=== PATIENT | female | born 1990 | race Asian ===

== ENCOUNTER 2016-11-29 12:25 | Emergency (ER) | payer BC ==
[~2016-11-29] VITALS: Ht 167.6 cm; Wt 56.6 kg
[2016-11-29 12:33] VITALS: TEMP 38.1; Ht 167.6 cm; Wt 56.6 kg
[2016-11-29 13:38] LABS: BASO % 0.2 %; BASO ABS # 0.01 K/uL (0-0.2); COMPLETE YES; EOS % 0.9 %; LYMPH % 28.2 %; LYMPH ABS # 1.19 K/uL (1.2-3.4); MEAN CELL VOLUME 91.1 fL (80-100); MEAN CORPUSCULAR HEMOGLOBIN 31.4 pg (25-34); MEAN CORPUSCULAR HGB CONC 34.5 g/dl (32-36); MEAN PLATELET VOLUME 9.1 fL (7.4-10.4); MONO % 9.7 %; PLATELET COUNT 184 K/uL (130-400); RED BLOOD COUNT 4.39 M/uL (4.2-5.4); WHITE BLOOD COUNT 4.22 K/uL (4.8-10.8)
[2016-11-29] MEDS ORDERED: SODIUM CHLORIDE 0.9% 1000ML 1,000 ML IV STA ×2 (13:40)
[2016-11-29] MEDS ORDERED: ACETAMINOPHEN 500 MG TAB PO STA (13:40)
[2016-11-29 13:43] VITALS: O2SAT 98
[2016-11-29 13:48] LABS: BUN/CREATININE RATIO 13.3 (10-20); CALCIUM 8.9 mg/dl (8.5-10.1); CREATININE 0.68 mg/dl (0.60-1.20); POTASSIUM 3.7 mmol/L (3.5-5.1)
--- NOTE | 2016-11-29 14:26 | DIAGNOSTIC IMAGING REPORT ---
SINGLE VIEW CHEST CLINICAL HISTORY: Cough and fever. FINDINGS: An AP, portable, upright chest radiograph is obtained. No prior studies are available for comparison at the time of dictation. The examination is degraded by portable technique and patient rotation. The cardiomediastinal silhouette is unremarkable. The lungs and pleural spaces are clear. No pneumothorax is seen. The bony thorax is grossly intact. IMPRESSION: No active disease in the chest. Electronically signed by: Lionel Nguyen M.D. 11/29/2016 2:24 PM Dictated Date/Time: 11/29/2016 2:24 PM
[2016-11-29] MEDS ORDERED: OSELTAMIVIR PHOSPHATE 75 MG CAP PO STA (14:41)
[2016-11-29 14:58] LABS: URINE APPEARANCE CLEAR (CLEAR); URINE BILIRUBIN NEG (NEG); URINE COLOR YELLOW; URINE NITRITE NEG (NEG); URINE PH >= 9.0 (4.5-7.5); URINE SPECIFIC GRAVITY 1.012 (1.000-1.030); UROBILINOGEN NEG (NEG)
[2016-11-29 15:05] LABS: MANUAL MICROSCOPIC REQUIRED? NO; REVIEW REQ? NO
[2016-11-29 15:21] VITALS: BP 96/54; PULSE 71; O2SAT 98
[2016-11-29] MEDS ORDERED: OSEL75CA12 PO (15:21)
[2016-11-29] MEDS ORDERED: IBUP-103 PO (15:25)
[2016-11-29] MEDS ORDERED: TYLOTC500 PO (15:25)
--- NOTE | 2016-11-29 17:31 | EMERGENCY ROOM VISIT NOTE ---
History Report prepared by Silvia: Ghassan Frank Under the Supervision of: Dr. Suleman Valles M.D. First contact with patient: 13:13 Chief Complaint: FLU LIKE SX Stated Complaint: FLU SX, HEADACHE, NECK PAIN/STIFFNESS X 4D History of Present Illness The patient is a 26 year old female who presents to the Emergency Room with complaints of worsening flu-like symptoms for the past four days. The patient started experiencing fevers, chills, a dry cough, and a sore throat four days ago. The patient was seen at [facility] three days ago and told that she has a viral infection. Her symptoms have since worsened since being discharged from [facility], and she now complains of headache, neck stiffness, generalized body aches and congestion in addition to her previous symptoms. The headache and neck stiff are rated 4/10 in severity. This is not a typical headache for her. She has been taking Tylenol and Advil for her fevers. The patient was seen at [facility] ED one week ago diagnosed with a UTI. She finished her three day course of Bactrim and notes that all of her urinary symptoms resolved. The patient denies any specific sick contacts but is a nurse at [employer]. She denies recent travel. She had the flu shot this year. Source of History: patient Onset: four days ago Position: other (global) Quality: other (flu-like symptoms) Timing: resolved Associated Symptoms: + chills, + cough, + fevers, + headache, + neck pain, + sorethroat, No urinary symptoms Review of Systems See HPI for pertinent positives and negatives. A total of ten systems were reviewed and were otherwise negative. Past Medical & Surgical Medical Problems: (1) UTI (urinary tract infection) Family History No pertinent family history Social History Smoking Status: Never Smoker Occupation Status: employed, [employer] student Current/Historical Medications Scheduled Ibuprofen Tab (Advil), 400-600 MG PO Q6H Oseltamivir (Tamiflu), 75 MG PO BID Scheduled PRN Acetaminophen (Tylenol), 500-1,000 MG PO Q6 PRN for Pain or Fever Allergies Coded Allergies: Oatmeal (Verified Allergy, Unknown, ANAPHYLAXIS, 11/29/16) Physical Exam Vital Signs Date Time Temp Pulse Resp B/P Pulse Ox O2 Delivery O2 Flow Rate FiO2 11/29/16 15:21 71 18 96/54 98 Room Air 11/29/16 14:01 87 16 117/79 98 Room Air 11/29/16 13:43 98 Room Air 11/29/16 13:24 88 11/29/16 12:33 38.1 97 18 122/83 98 Room Air Physical Exam GENERAL: Awake, alert, mildly ill appearing, no distress HEAD: Normocephalic, atraumatic. No edema. EYES: Normal conjunctiva. Sclera non-icteric. EARS: Right TM normal. Left TM normal. NOSE: Mild congestion. OROPHARYNX: Lips, tongue, and mucosa unremarkable. No erythema or exudate. NECK: Supple. No nuchal rigidity. FROM. No adenopathy. Negative jolt accentuation test. RESPIRATORY: CTA bilaterally. No wheezes rales or rhonchi. CARDIAC: Borderline tachycardic rate, normal rhythm. ABDOMEN: Soft, non distended. No tenderness to palpation. NEURO: Normal sensorium. SKIN: No rash or jaundice noted Medical Decision & Procedures ER Provider Diagnostic Interpretation: Imaging studies: Chest x-ray. Findings: A chest x-ray was performed and revealed no pneumothorax, effusion, infiltrate, pulmonary edema, free air under the diaphragm, or wide mediastinum. Impression: No acute disease. Laboratory Results 11/29/16 12:45 Red Blood Count 4.39, Mean Corpuscular Volume 91.1, Mean Corpuscular Hemoglobin 31.4, Mean Corpuscular Hemoglobin Concent 34.5, Mean Platelet Volume 9.1, Neutrophils (%) (Auto) 61.0, Lymphocytes (%) (Auto) 28.2, Monocytes (%) (Auto) 9.7, Eosinophils (%) (Auto) 0.9, Basophils (%) (Auto) 0.2, Neutrophils # (Auto) 2.57, Lymphocytes # (Auto) 1.19, Monocytes # (Auto) 0.41, Eosinophils # (Auto) 0.04, Basophils # (Auto) 0.01 11/29/16 12:45 Test 11/29/16 12:45 11/29/16 13:48 11/29/16 14:42 White Blood Count 4.22 K/uL (4.8-10.8) Red Blood Count 4.39 M/uL (4.2-5.4) Hemoglobin 13.8 g/dL (12.0-16.0) Hematocrit 40.0 % (37-47) Mean Corpuscular Volume 91.1 fL (80-100) Mean Corpuscular Hemoglobin 31.4 pg (25-34) Mean Corpuscular Hemoglobin Concent 34.5 g/dl (32-36) Platelet Count 184 K/uL (130-400) Mean Platelet Volume 9.1 fL (7.4-10.4) Neutrophils (%) (Auto) 61.0 % Lymphocytes (%) (Auto) 28.2 % Monocytes (%) (Auto) 9.7 % Eosinophils (%) (Auto) 0.9 % Basophils (%) (Auto) 0.2 % Neutrophils # (Auto) 2.57 K/uL (1.4-6.5) Lymphocytes # (Auto) 1.19 K/uL (1.2-3.4) Monocytes # (Auto) 0.41 K/uL (0.11-0.59) Eosinophils # (Auto) 0.04 K/uL (0-0.5) Basophils # (Auto) 0.01 K/uL (0-0.2) RDW Standard Deviation 40.6 fL (36.4-46.3) RDW Coefficient of Variation 12.0 % (11.5-14.5) Immature Granulocyte % (Auto) 0.0 % Immature Granulocyte # (Auto) 0.00 K/uL (0.00-0.02) Anion Gap 8.0 mmol/L (3-11) Est Creatinine Clear Calc Drug Dose 114.0 ml/min Estimated GFR () 141.9 Estimated GFR (Non- 122.4 BUN/Creatinine Ratio 13.3 (10-20) Calcium Level 8.9 mg/dl (8.5-10.1) Total Bilirubin 0.5 mg/dl (0.2-1) Direct Bilirubin 0.1 mg/dl (0-0.2) Aspartate Amino Transf (AST/SGOT) 20 U/L (15-37) Alanine Aminotransferase (ALT/SGPT) 22 U/L (12-78) Alkaline Phosphatase 49 U/L (45-117) Total Protein 7.6 gm/dl (6.4-8.2) Albumin 4.1 gm/dl (3.4-5.0) Influenza Type A Antigen Neg for Influ A (NEG) Influenza Type B Antigen POS for Influ B (NEG) Urine Color YELLOW Urine Appearance CLEAR (CLEAR) Urine pH >= 9.0 (4.5-7.5) Urine Specific [place] 1.012 (1.000-1.030) Urine Protein NEG (NEG) Urine Glucose (UA) NEG (NEG) Urine Ketones NEG (NEG) Urine Occult Blood NEG (NEG) Urine Nitrite NEG (NEG) Urine Bilirubin NEG (NEG) Urine Urobilinogen NEG (NEG) Urine Leukocyte Esterase TRACE (NEG) Urine WBC (Auto) 1-5 /hpf (0-5) Urine RBC (Auto) 0-4 /hpf (0-4) Urine Hyaline Casts (Auto) 0 /lpf (0-5) Urine Epithelial Cells (Auto) 10-20 /lpf (0-5) Urine Bacteria (Auto) 4+ (NEG) Laboratory results reviewed by me Medications Administered Medications (Trade) Dose Ordered Sig/Bennett Route Start Time Stop Time Status Last Admin Dose Admin Acetaminophen 1000 mg 1,000 mg NOW STAT PO 11/29/16 13:40 11/29/16 13:42 DC 11/29/16 13:55 1,000 MG Sodium Chloride 1,000 ml @ 999 mls/hr Q1H1M STAT IV 11/29/16 13:40 11/29/16 14:40 DC 11/29/16 13:55 999 MLS/HR Sodium Chloride (Nss 1000ml) 1,000 ml @ 200 mls/hr Q5H STAT IV 11/29/16 13:40 11/29/16 15:57 DC 11/29/16 13:55 200 MLS/HR Oseltamivir Phosphate (Tamiflu Cap) 75 mg NOW STAT PO 11/29/16 14:41 11/29/16 14:42 DC 11/29/16 14:52 75 MG ED Course 1320: The patient was evaluated by the medical student. 1340: The patient was evaluated in room C12b. A complete history and physical exam was performed. 1340: NSS 1000 ml @ 200 mls/hr, NSS 1000 ml @ 999 mls/hr, Tylenol 1000 mg PO. 1348: Discussed the risks and benefits of a lumbar puncture with the patient. 1420: The patient's culture results from [facility] showed growth of Bactrim- sensitive E. Coli. 1440: The patient's influenza B test came back positive. Updated her. 1441: Tamiflu 75 mg PO. 1525: I reevaluated the patient. Discussed results and discharge instructions: She verbalized understanding and agreement. She is comfortable with taking Tamiflu and withholding a lumbar puncture.. The patient is ready for discharge. Medical Decision Prior records/ancillary studies reviewed. The patient had a Bactrim sensitive Escherichia coli UTI last weekend and was treated appropriate. All urinary symptoms resolved. Triage Nursing notes reviewed and agree them. The patient's history was concerning for fever. Differential diagnosis: Etiologies such as influenza, viral syndrome,pneumonia, influenza,meningitis, urinary tract infection, otitis, pharyngitis,sepsis, bacteremia, as well as others were entertained. Physical examination: The patient was examined. Clinically she was doing relatively well. She had a mild cough and flulike symptoms present. She had some headache and some movements of some mild neck discomfort but no clear nuchal rigidity on examination. She had a negative jolt accentuation test. ER treatment provided: IV hydration with normal saline Oral Tylenol On reassessment the patient felt better. Oral Tamiflu Diagnostics interpreted by me: The labs revealed a mild leukopenia on CBC. Chem panel was unremarkable. The patient has a positive flu test. No clear signs of UTI on urinalysis. Some bacteria noted but no significant esterase, pyuria, or nitrites. Imaging studies: X-ray as above. The patient has influenza B. 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 She was given a work note as well as a school note. The patient does not have any clear signs of meningitis at this time. I believe her symptoms are related to the influenza illness. I discussed lumbar puncture with her but at this point it does not seem to be necessary and the patient is in agreement. She will follow-up closely as an outpatient. If she worsens in any way she will be back to the Emergency Room for reevaluation. I gave my usual and customary discussion regarding this issue. By the evaluation outlined above emergent etiologies such as otitis, pharyngitis, pneumonia, meningitis, urinary tract infection, sepsis, bacteremia , as well as others were deemed relatively unlikely. The patient was informed about the findings as listed above. All questions were answered and she was pleased with the treatment. Return instructions were outlined and the patient was discharged in stable condition. Outpatient prescription management: Tamiflu Referral: The patient was referred back to her primary care physician for follow-up in 2 to 3 days for a recheck of the current condition. The chart was completed utilizing [employer] Speech voice recognition software. Grammatical errors, random word insertions, pronoun errors, and incomplete sentences are an occasional consequence of this system due to software limitations, ambient noise, and hardware issues. Any formal questions or concerns about the content, text, or information contained within the body of this dictation should be directly addressed to the physician for clarification. Impression Primary Impression: Influenza B Scribe Attestation The scribe's documentation has been prepared under my direction and personally reviewed by me in its entirety. I confirm that the note above accurately reflects all work, treatment, procedures, and medical decision making performed by me. Departure Information Dispostion Home / Self-Care Prescriptions Oseltamivir (Tamiflu) 75 Mg Cap 75 MG PO BID, #9 CAP Prov: Suleman Valles MD 11/29/16 Referrals [facility] (PCP) Forms HOME CARE DOCUMENTATION FORM, IMPORTANT VISIT INFORMATION, School Instructions, Work Instructions Patient Instructions My [facility] Additional Instructions Diagnosis: Influenza B Tamiflu 75 mg twice daily for 5 days. Acetaminophen(Tylenol) may be used for fever or pain. Use 1000mg every six hours as needed. Avoid using more than 4000mg in a 24 hour period. (AND/OR) Ibuprofen(Motrin, Advil) may be used for fever or pain. Use 600mg every six hours as needed. Take with food. Avoid using more than 2400mg in a 24 hour period. Do not use 2400mg per day for more than three consecutive days without physician direction. Prolonged inappropriate use can lead to stomach upset or ulcers. Rest and drink plenty of fluids. Controlling your fever with Tylenol and Ibuprofen as above will make you feel better. Wash your hands after nose blowing, sneezing, or coughing. Most germs are spread through contact, therefore improper hygiene may result in your close contacts and loved ones becoming ill just like you. Return to the ER for severe headache, neck stiffness, chest pain, difficulty breathing, fevers, vomiting, worsening of your condition, or as needed. Follow up with your primary physician this week for a recheck of your current condition.
--- NOTE | 2016-12-01 13:46 | Pharmacy Progress Note ---
ED Pharmacist Culture FollowUp Date of Service: Dec 01, 2016. Patient's urine cx from 11/29/16 is growing > 100,000CFU/mL E coli. The patient had denied urinary symptoms during the ED visit and was being seen for another complaint of flu-like symptoms. She had however recently completed a course of Bactrim for a UTI diagnosed by [facility]. The E coli in the culture was resistant to Bactrim. The UA was questionable in significance as it was clear and had no pyuria but did have 10-20 epis and 4+ bacteria (possible colonization vs contamination). Reviewed case w/ Dr Jacobson. He recommended contacting the patient via phone and if she had urinary symptoms begin Macrobid. I spoke w/ the patient via phone ([phone]) and she states she has had intermittent frequency, urgency and at times a little discomfort when urinating. Rx for Macrobid 100mg PO BID x 5 days; auth by Dr Jacobson, no refills, was faxed to [facility] (fax: [phone])
== END 2016-11-29 15:33 | disposition home or self-care (01) ==
LOC: C.EDB 12:26 → C.EDC 15:33
DX: J11.1 Influenza due to unidentified influenza virus with other respiratory manifestations (principal); Z87.440 Personal history of urinary (tract) infections